=== PATIENT | female | born 1975 | race Caucasian/White ===

== ENCOUNTER → 2020-10-02 | Outpatient (CLI) | payer BC ==
--- NOTE | 2020-10-02 17:13 | RAD ---
US THYROID History: Reason: NECK SWELLING / Spl. Instructions: LUMP ANTERIOR NECK PER PT / History: Comparison: None. Technique: Multiple grayscale and color Doppler images of the thyroid gland were obtained. Findings: Right thyroid lobe: 3.9 x 1.5 x 1.2 cm. Homogeneous echotexture. Left thyroid lobe: 3.7 x 1.5 x 1.7 cm. Homogeneous echotexture. Isthmus: 0.4 cm. Solid hypoechoic left isthmus nodule measures 1.3 x 1.0 x 0.6 cm. TI-RADS 4. ACR Thyroid Imaging, Reporting And Data System (TI-RADS): White Paper Of The ACR TI-RADS Committee. J ournal of the [employer], volume 14, issue 5, pages 587-595 (January 2017). IMPRESSION: 1. TI-RADS 4 left isthmus nodule. Recommend ultrasound follow-up. Electronically signed by: Cj Hernandez DO (10/02/2020 5:11 PM) [id number]
== END ==
LOC: US 14:44
PROVIDERS: ATTEND Physician Assistant
DX: E04.1 Nontoxic single thyroid nodule (principal)
CPT/HCPCS: 76536

== ENCOUNTER → 2021-05-28 | Outpatient (CLI) | payer BC ==
--- NOTE | 2021-05-28 14:01 | RAD ---
EXAM: Thyroid sonogram. HISTORY: Thyroid nodule. TECHNIQUE: Sonographic imaging of the thyroid was performed. COMPARISON: 10/02/2020. FINDINGS: The right thyroid lobe measures 4.5 x 1.3 x 1.3 cm. The left thyroid lobe measures 3.9 x 1. 3 x 1.4 cm. The thyroid isthmus measures 4 mm. There is a circumscribed solid hypoechoic nodule with internal blood flow within the isthmus centered slightly to the left of midline, measuring 1.2 x 0.9 x 0.6 cm. This previously measured 1.3 x 1.0 x 0.6 cm. No new lesion is seen. IMPRESSION: 1. 1.2 x 0.9 x 0.6 cm nodule centered within the left aspect of the thyroid isthmus. This is stable t o minimally decreased in size compared to the prior study, allowing for differences in measurement te chnique. The lesion features are consistent with a TI-RADS Category 4 lesion. The patient reports clarissa or fine-needle aspiration of this lesion with benign pathology findings. 2. No new suspicious thyroid nodule. Electronically signed by: Mignon Hobbs MD (05/28/2021 1:58 PM) [id number]
== END ==
LOC: US 13:12
PROVIDERS: ATTEND Registered Nurse
DX: E04.1 Nontoxic single thyroid nodule (principal)
CPT/HCPCS: 76536

== ENCOUNTER → 2021-06-16 | Outpatient (CLI) | payer BC ==
--- NOTE | 2021-06-16 17:19 | RAD ---
EXAM: Left breast diagnostic mammogram with tomosynthesis. HISTORY: 45-year-old female presents for follow-up evaluation status post benign left breast biopsy. TECHNIQUE: Full-field digital craniocaudal and mediolateral oblique 2D and 3D tomosynthesis images of the left breast are obtained for evaluation. Computer aided detection was applied. COMPARISON: 11/25/2020, 11/14/2020, 10/30/2020 BREAST PARENCHYMAL DENSITY: Level D - Extremely dense. FINDINGS: There is no new suspicious mass, microcalcification or region of architectural distortion. There is a biopsy clip within the posterior 2:00 position of the left breast. IMPRESSION: BI-RADS Category 2: Benign finding(s). RECOMMENDATION: Bilateral screening mammography is recommended in approximately 4 months to correspon d with the previously established bilateral mammography interval. If your mammogram demonstrates that you have dense breast tissue, which could hide abnormalities, and if you have other risk factors for breast cancer that have been identified, you might benefit from s upplemental screening tests that may be suggested by your ordering physician. Dense breast tissue, i n and of itself, is a relatively common condition. This information is not provided to cause undue c oncern, but rather to raise your awareness and to promote discussion with your physician regarding th e presence of other risk factors, in addition to dense breast tissue. A report of your mammography re sults will be sent to you and your physician. You should contact your physician if you have any ques tions or concerns regarding this report. Mammography is a sensitive method for finding small breast cancers, but it does not detect them all a nd is not a substitute for careful clinical examination. A negative mammogram does not negate a clin ically suspicious finding and should not result in delay in biopsying a clinically suspicious abnorma lity. PQRS compliance statement - Patient information was entered into a reminder system with a target due date for the next mammogram. "Our facility is accredited by the [employer] Mammography Program." Electronically signed by: Mignon Hobbs MD (06/16/2021 5:17 PM) [id number]
== END ==
LOC: MAMMO 14:56
PROVIDERS: ATTEND Family Medicine
DX: R92.8 Other abnormal and inconclusive findings on diagnostic imaging of breast (principal)
CPT/HCPCS: 77065; G0279; 77061